=== PATIENT | male | born 1945 | race Caucasian/White ===

== ENCOUNTER → 2017-08-04 | Outpatient (CLI) | payer MEDICARE, OTHER | LOC: M SMT 09:23 | DX: R91.8 Other nonspecific abnormal finding of lung field (principal) | CPT/HCPCS: 71046 ==

== ENCOUNTER 2018-07-22 08:21 | Emergency (ER) | payer MEDICARE, OTHER ==
[~2018-07-22] VITALS: Ht 180.3 cm; Wt 43.9 kg
[~2018-07-22 08:21] MED LIST: /THIA10TA OR; ADVA1AER2 IN; AFRI0.056; FOLI1TAB OR; LEVA500T OR; LEVO300T OR; MAGN500T2 OR; MARI5CAP PO; MULTIVIT PO; NO HISTORICAL MEDS; No Historical Meds; OCEA0.65; OXAZ10CA25 PO; PRED10TA2 OR; PRED20TA OR; PROT1TAB2 PO; SPIR1CAP INH; VITA100T2 PO
[2018-07-22] MEDS ORDERED: IPRATROPIUM 0.5MG/ALBUTEROL 2.5MG INH SOL UD 3ML (DUONEB)(J7620) NEB ONE (08:30)
[2018-07-22 08:50] LABS: HEMATOCRIT 22.1 % (42.0-52.0); HEMOGLOBIN 7.3 g/dl (13.5-17.5); MEAN CORPUSCULAR VOLUME 90.9 fl (80.0-96.0); PLATELET COUNT, AUTOMATED 591 10^3/uL (150-450); RED BLOOD COUNT 2.43 10^6/uL (4.30-6.10)
[2018-07-22 08:54] LABS: WHITE BLOOD COUNT 19.4 10^3/uL (4.0-10.0)
[2018-07-22] MEDS ORDERED: NS 500 ML IV ONE (09:00)
[2018-07-22 09:08] LABS: INR 1.03; PROTHROMBIN TIME 13.6 SECONDS (12.1-14.4)
[2018-07-22 09:09] LABS: ABG BASE EXCESS -0.5 (-2.0-2.0); ABG HCO3 22.3 MEQ/L (22.0-26.0); ABG O2 SATURATION 99.7 % (95.0-99.0); ABG PARTIAL PRESSURE CO2 28.8 mmHg (35.0-45.0); ABG PARTIAL PRESSURE O2 236.8 mmHg (75.0-100.0); ABG STANDARD HCO3 24.1 MEQ/L (22.0-26.0); ABG TOTAL CO2 23.2 MEQ/L (23.0-31.0); ABG pH (ARTERIAL) 7.507 UNITS (7.350-7.450)
[2018-07-22 09:09] LABS: PARTIAL THROMBOPLASTIN TIME 26.2 SECONDS (25.4-37.6)
[2018-07-22 09:15] LABS: LYMPHOCYTES 49 % (16-52); MONOCYTES 2 % (0-8); NEUTROPHILS 49 % (35-75); PLATELET ESTIMATE INCREASED (NORMAL)
[2018-07-22] MEDS ORDERED: PANTOPRAZOLE 40MG INJ (PROTONIX) (C9113) IV ONE (09:15)
--- NOTE | 2018-07-22 09:37 | REP ---
Oral chest x-ray: Single view. History: Altered mental status. Comparison chest x-ray: August 04, 2017. Findings: EKG monitoring electrodes overlie the chest. Vascular calcification is noted. The patient is extremely thin consistent with cachexia. There are biapical emphysematous and pleuroparenchymal fibrotic changes, right greater than left. No acute infiltrate is seen. There is a granuloma in the left base. Heart size is normal. Findings are unchanged from August 04, 2017. Impression: Evidence of COPD. Biapical pleuroparenchymal fibrosis and emphysema. Old granulomatous calcification left base. Otherwise no acute disease. Electronically Signed by Charlie Dumont MD 07/22/2018 09:29 A
[2018-07-22] MEDS ORDERED: LIDOCAINE 2% 5ML JELLY UROJET TOP ONE (10:00)
[2018-07-22] MEDS ORDERED: LevoFLOXacin IV 750 MG in APPROPRIATE DILUENT 1 EA IV ONE (10:00)
[2018-07-22 10:06] LABS: ACETAMINOPHEN LEVEL < 2.0 UG/ML (10.0-30.0); ALBUMIN 1.8 GM/DL (3.2-5.2); ALT/SGPT 203 U/L (12-78); AMYLASE 66 U/L (25-115); BILIRUBIN,DIRECT 10.6 MG/DL (0.0-0.2); BILIRUBIN,TOTAL 11.7 MG/DL (0.2-1.0); BLOOD UREA NITROGEN 34 MG/DL (7-18); CALCIUM LEVEL 8.7 MG/DL (8.8-10.2); CARBON DIOXIDE LEVEL 22 MEQ/L (21-32); CHLORIDE LEVEL 107 MEQ/L (98-107); CPK CREATINE PHOSPHOKINASE 45 U/L (39-308); CREATININE FOR GFR 0.92 MG/DL (0.70-1.30); ETHYL ALCOHOL (ETHANOL) < 0.003 % (0.000-0.010); GLOMERULAR FILTRATION RATE > 60.0 (>42); GLUCOSE, FASTING 136 MG/DL (70-100); LIPASE 162 U/L (73-393); MB/CK RELATIVE INDEX 2.44 (< OR =4); NT-PRO BNP 2292 PG/ML (<125); POTASSIUM SERUM 4.9 MEQ/L (3.5-5.1); SALICYLATE LEVEL < 1.7 MG/DL (5.0-30.0); SODIUM LEVEL 140 MEQ/L (136-145); THYROXINE (T4) 11.2 UG/DL (4.5-12.0); TOTAL PROTEIN 5.6 GM/DL (6.4-8.2); TROPONIN I < 0.02 NG/ML (< 0.10)
[2018-07-22] MEDS ORDERED: ISOVUE-370 76% 100ML VIAL (Q9967) As Ordered ONE (10:15)
[2018-07-22] MEDS ORDERED: DILUENT IV ONE (10:30)
[2018-07-22] MEDS ORDERED: NS IV ONE (10:30)
[2018-07-22 10:57] LABS: AMPHETAMINES LEVEL URINE NEGATIVE (NEGATIVE); BARBITURATES URINE NEGATIVE (NEGATIVE); BENZODIAZEPINES URINE NEGATIVE (NEGATIVE); CANNABINOIDS URINE NEGATIVE (NEGATIVE); COCAINE METABOLITE URINE NEGATIVE (NEGATIVE); METHADONE URINE NEGATIVE (NEGATIVE); OPIATES URINE NEGATIVE (NEGATIVE); PHENCYCLIDINE URINE NEGATIVE (NEGATIVE)
--- NOTE | 2018-07-22 11:04 | REP ---
CT of the chest with IV contrast, CT pulmonary artery angiography: Comparison is 06/20/2013. There are no emboli in the pulmonary trunk or central pulmonary arteries. There are no emboli in the pulmonary lobe or segment branches. There are numerous bulla accompanied by chronic pleuroparenchymal scarring in the lung apices bilaterally, not significantly changed. There is bronchiectasis. There are intraluminal secretions and throughout the bronchi in the right lower lobe. There is a left lower lobe calcified granuloma, there is a calcified granuloma in the left hilus and there are calcified granuloma in the aorticopulmonic window mediastinum. There is no mediastinal or hilar lymph node enlargement. There is no axillary lymph node enlargement. There is minimal subcutaneous body fat. Impression: There are no pulmonary emboli. Chronic parenchymal scarring and bulla throughout the lung gan bilaterally, , particularly in the apices, not significantly changed. Bronchiectasis. Intraluminal secretions throughout the right lower lobe bronchi. Electronically Signed by Keith Alfred MD 07/22/2018 10:56 A
--- NOTE | 2018-07-22 15:05 | REP ---
CT of the abdomen with IV contrast, without bowel contrast: The studies performed contiguously with the chest CT this same date. There is a large hepatic mass occupying the entire left lobe and a large portion of the right lobe of the liver with a mottled appearance containing areas of hypodensity and areas of enhancing soft tissue density measuring up to 15 cm in diameter. In addition there is a cystic mass in the liver supero lateral anterior to the previously described large mass measuring 5.5 cm in diameter. There appear to be a nodular mass like densities along the medial wall of this cyst. The gallbladder is not identified with certainty. There are multiple calculi along the inferomedial margin of the hepatic right lobe. These may be gallbladder calculi within a nondistended gallbladder. The gallbladder may be compressed by the large hepatic mass. There is intrahepatic biliary duct dilatation, possibly from compression of the common biliary duct by the large hepatic mass. Additionally, there is a another mass posteromedial to the liver adjacent to the upper pole right kidney. This could be an hepatic mass or could be a right adrenal mass. It measures 4.2 cm in diameter. The pancreas and spleen are unremarkable. The left adrenal is unremarkable. The right and left kidneys are unremarkable. The abdominal aorta is unremarkable except for calcified atheroma. There is no retroperitoneal adenopathy. No mesenteric adenopathy may There is no ascites. There is minimal subcutaneous and intraperitoneal body fat. There are mildly distended small bowel loops, possibly ileus. There is no colonic distension. Pelvis: The the patient reportedly has an appendectomy. There is no pelvic ascites. There is no pelvic adenopathy. The bladder is obscured by a metallic density superimposed over the right hip. I suspect there is a Mendoza catheter in the bladder. There are no lytic, blastic or destructive skeletal changes. Impression: Multiple hepatic masses as described. Adrenal mass versus an additional hepatic mass. No adenopathy or ascites. No bowel distension or obstruction. Minimal intraperitoneal and subcutaneous body fat. Bladder. Mendoza catheter. Moderate small bowel distension, nonspecific. Probable cholelithiasis as described. Intrahepatic biliary duct dilatation, likely secondary to common duct compression from the large hepatic masses. Electronically Signed by Keith Alfred MD 07/22/2018 02:56 P
[2018-07-22] MEDS ORDERED: MEROPENEM INJ 1 GM in APPROPRIATE DILUENT 1 EA IV ONE (15:15)
[2018-07-22 16:25] VITALS: BP 106/53
--- NOTE | 2018-07-22 19:27 | ECGEPIP ---
Stationary ECG Study [facility] - ED Test Date: 2018-07-22 Pat Name: PRICILA MAC Department: Room: - Gender: M [employer]: TC : 1945 Requested By: Scott Hood Order Number: [id number] Reading MD: Scott Hood Measurements Intervals [place] Rate: 123 P: 85 MO: 143 QRS: 81 QRSD: 78 T: 74 QT: 305 QTc: 438 Interpretive Statements SINUS TACHYCARDIA MINIMAL ST DEPRESSION ABNORMAL RHYTHM ECG 09/12/[address] T WAVE CHANGES Electronically Signed On 07-22-2018 19:26:46 EDT by Scott Hood
== END 2018-07-22 16:29 | disposition short-term general hospital (02) ==
LOC: M ED 08:21 → EDBD 08:21 → M ED 16:29
DX: R16.0 Hepatomegaly, not elsewhere classified (principal); D64.9 Anemia, unspecified; R94.31 Abnormal electrocardiogram [ECG] [EKG]; J43.8 Other emphysema; F10.11 Alcohol abuse, in remission; Z88.0 Allergy status to penicillin; Z87.19 Personal history of other diseases of the digestive system; Z87.891 Personal history of nicotine dependence
CPT/HCPCS: 36415; 36430; 36600; 51702; 71045; 71275; 74177; 80048; 80076; 80307; 81001; 82140; 82150; 82550; 82553; 82803; 83605; 83690; 83880; 84436; 84443; 84484; 85025; 85610; 85730; 86850; 86900; 86901; 86920; 87040; 93005; 93041; 94640; 96365; 96366; 96367; 96375; 99285; C9113; G0480; J1956; J2185; P9016; Q9967